=== PATIENT | female | born 1950 | race African-American/Black ===

== ENCOUNTER 2017-04-22 15:24 | Emergency (ER) | payer MEDICARE, MEDICAID ==
[2017-04-22 16:57] LABS: Bilirubin Negative (Negative); Blood, Urine Negative (Negative); Clarity CLEAR (Clear); Glucose, Urine (Dipstick) Negative (Negative); Leukocyte Trace (Negative); Nitrite Negative (Negative); Protein, Urine (Dipstick) Negative (Neg-Trace); Specific Gravity, Urine 1.018 (1.002-1.036)
[2017-04-22 17:01] LABS: Bacteria/HPF 1+ HPF (None Seen); Hyaline Casts/LPF 0-3 HYALINE CAST LPF (0-3 Hyaline); Pathc Cast-AUWi Flag 0.27 (0-2.49); Squamous Epithelial 0-3 HPF (0-3); WBC/HPF 0-3 HPF (0-3)
[2017-04-22 17:14] LABS: RBC/HPF 0-3 HPF (0-3)
[2017-04-22 17:20] LABS: #Basophils 0.1 thou/uL (0.0-0.2); #Eosinphils 0.1 thou/uL (0.0-0.7); #Lymphocytes 2.3 thou/uL (1.20-3.40); #Monocytes 0.5 thou/uL (0.11-0.59); #Neutrophils 3.7 thou/uL (1.40-6.50); %Basophils 0.8 % (0.0-1.0); %Eosinophils 1.4 % (0.0-10.0); %Lymphocytes 34.9 % (21.0-51.0); %Monocytes 7.2 % (0.0-10.0); %Neutrophils 55.7 % (42.0-75.0); Hemoglobin 11.3 g/dL (12.0-16.0); Mean Corpuscular HGB CONC 31.5 g/dL (32.0-36.0); Mean Corpuscular Hemoglobin 28.1 pg (27.0-31.0); Mean Corpuscular Volume 89.4 fl (81.0-99.0); Mean Platelet Volume 8.1 fL (7.4-10.4); Platelet Count 292 thou/uL (130-400); RBC Distribution Width 11.7 % (11.5-14.5); Red Blood Cell (RBC) Count 4.01 mill/uL (4.20-5.40); White Blood Cell (WBC) Count 6.6 thou/uL (4.8-10.8)
[2017-04-22 17:44] LABS: ALT (SGPT) 28 U/L (8-55); AST (SGOT) 28 U/L (5-34); Albumin 4.2 g/dL (3.4-4.8); Alkaline Phosphatase 65 U/L (40-150); Anion Gap 12 mmol/L (10-20); BUN (Urea Nitrogen) 19 mg/dL (9.8-20.1); Bilirubin, Total 0.3 mg/dL (0.2-1.2); CK (CPK) 75 U/L (29-168); CKMB 0.6 ng/mL (0-6.6); CRP (Inflammatory) Less than 0.50 mg/dL (= or < 0.5); Calc. Creatinine Clearance 0 mL/min (70-130); Carbon Dioxide 27 mmol/L (23-31); Chloride 107 mmol/L (98-107); Estimated GFR-MDRD 57; Globulin 3.2 g/dL (2.4-3.5); Glucose 85 mg/dL (80-115); Lipase 31 U/L (8-78); Potassium 4.4 mmol/L (3.5-5.1); Protein, Total 7.4 g/dL (6.0-8.3); Sodium 142 mmol/L (136-145); Troponin I Less than 0.010 ng/mL (< 0.028)
--- NOTE | 2017-04-22 18:21 | CT ---
CT SCAN LUMBAR SPINE: 04/22/17 Multiple axial tomograms obtained through the lumbar spine with multiplanar reconstruction. HISTORY: Back pain. There is mild anterior wedging of the L3, L4 and L5 vertebrae. Prominent anterior osteophytes are see n. There is an old corner fracture from the anterior superior corner of the L4 vertebra with an ununi phillip fragment. This represents an old injury. There is no evidence of spondylolisthesis or spondylolys is. L1-2: There is a mild broad based disc bulge with facet hypertrophy resulting in mild central canal s tenosis. L2-3: Diffuse disc bulge combined with facet hypertrophy results in moderate central canal stenosis. L3-4: Diffuse disc bulge is more prominent. Facet and ligamentous hypertrophy. Moderate to severe urmila tral canal stenosis at this level. L4-5: Very pronounced diffuse disc bulge with bilateral foraminal encroachment combined with facet an d ligamentous hypertrophy results in severe central canal stenosis. L5-S1: Broad based disc bulge is prominent, however, the thecal sac is congenitally smaller. No signi ficant central canal stenosis; however, there is bilateral foraminal stenosis due to diffuse disc bul ge and hypertrophic change. IMPRESSION: Disc bulge at multiple levels with severe central canal stenosis at L4-5 and varying degrees of centr al canal stenosis at the other levels as described. POS: [facility]
== END 2017-04-22 18:13 | disposition home or self-care (01) ==
LOC: ERS 15:24
DX: M51.34 Other intervertebral disc degeneration, thoracic region (principal); R10.9 Unspecified abdominal pain; M54.5 Low back pain; E78.5 Hyperlipidemia, unspecified; I10 Essential (primary) hypertension; F17.210 Nicotine dependence, cigarettes, uncomplicated
CPT/HCPCS: 36415; 72131; 80053; 81003; 81015; 82550; 82553; 83690; 84484; 85025; 86140; 93005; 99406

== ENCOUNTER 2017-12-28 12:06 | Outpatient (CLI) | payer MEDICARE, MEDICAID ==
[2017-12-28 13:16] LABS: #Basophils 0.1 thou/uL (0.0-0.2); #Eosinphils 0.1 thou/uL (0.0-0.7); #Lymphocytes 1.9 thou/uL (1.20-3.40); #Monocytes 0.4 thou/uL (0.11-0.59); %Basophils 1.3 % (0.0-1.0); %Eosinophils 1.6 % (0.0-10.0); %Lymphocytes 35.2 % (21.0-51.0); %Monocytes 7.2 % (0.0-10.0); %Neutrophils 54.8 % (42.0-75.0); Hemoglobin 11.5 g/dL (12.0-16.0); Mean Corpuscular HGB CONC 30.6 g/dL (32.0-36.0); Mean Corpuscular Hemoglobin 26.7 pg (27.0-31.0); Mean Corpuscular Volume 87.3 fL (78.0-98.0); Mean Platelet Volume 8.1 fL (7.4-10.4); Platelet Count 316 thou/uL (130-400); RBC Distribution Width 12.1 % (11.5-14.5); Red Blood Cell (RBC) Count 4.32 mill/uL (4.20-5.40); White Blood Cell (WBC) Count 5.4 thou/uL (4.8-10.8)
[2017-12-28 13:23] LABS: Prothrombin Time 13.4 SEC (12.0-14.7)
[2017-12-28 13:36] LABS: ALT (SGPT) 10 U/L (8-55); AST (SGOT) 14 U/L (5-34); Albumin 4.3 g/dL (3.4-4.8); Alkaline Phosphatase 71 U/L (40-150); Anion Gap 11 mmol/L (10-20); BUN (Urea Nitrogen) 18 mg/dL (9.8-20.1); Bilirubin, Total 0.5 mg/dL (0.2-1.2); Calc. Creatinine Clearance 0 mL/min (70-130); Carbon Dioxide 27 mmol/L (23-31); Chloride 104 mmol/L (98-107); Estimated GFR-MDRD 48; Globulin 3.4 g/dL (2.4-3.5); Glucose 86 mg/dL (80-115); Protein, Total 7.7 g/dL (6.0-8.3); Sodium 138 mmol/L (136-145)
== END 2017-12-28 12:07 | disposition home or self-care (01) ==
LOC: LABBT 12:06
PROVIDERS: ATTEND Internal Medicine Cardiovascular Disease
DX: Z01.812 Encounter for preprocedural laboratory examination (principal); I20.9 Angina pectoris, unspecified
CPT/HCPCS: 80053; 85025; 85610; 85730

== ENCOUNTER 2017-12-29 07:56 | Day surgery (SDC) | payer MEDICARE, MEDICAID ==
[2017-12-28 12:17] VITALS: BMI 25.4
[2017-12-29] MEDS ORDERED: Heparin 10,000 UNITS/1 ML VIAL ONE (08:47)
[2017-12-29] MEDS ORDERED: Nitroglycerin 100MG/250ML BOT 250 ML ONE (08:48)
[2017-12-29] MEDS ORDERED: Lidocaine 1% (PF) 30 ML VIAL ONE (08:48)
[2017-12-29] MEDS ORDERED: Fentanyl 100 MCG/2 ML VIAL ONE (09:07)
[2017-12-29] MEDS ORDERED: Midazolam HCl 2 mg/2 ml Vial ONE (09:08)
[2017-12-29] MEDS ORDERED: Adenosine 6 MG/2 ML VIAL ONE (09:43)
[2017-12-29] MEDS ORDERED: Iopamidol 370 76% 100 ML VIAL ONE (10:24)
[2017-12-29] MEDS ORDERED: Clopidogrel Bisulfate 300 MG TAB ONE (10:55)
--- NOTE | 2017-12-29 15:30 | EKG ---
Test Reason : POST STENTS X2 Blood Pressure : / mmHG Vent. Rate : 068 BPM Atrial Rate : 068 BPM P-R Int : 164 ms QRS Dur : 080 ms QT Int : 410 ms P-R-T Axes : 062 011 014 degrees QTc Int : 435 ms Normal sinus rhythm Normal ECG When compared with ECG of 22-APR-2017 16:51, No significant change was found Confirmed by SUBHASH AGEE, SSil ([id number]) on 12/29/2017 3:30:22 PM Referred By: GODFREY Confirmed By:DR. Toro CULLEN MD
== END 2017-12-29 13:58 | disposition home or self-care (01) ==
LOC: CCL 07:56
PROVIDERS: ATTEND Internal Medicine Cardiovascular Disease
PROC: 027034Z Dilation of Coronary Artery, One Artery with Drug-eluting Intraluminal Device, Percutaneous Approach (ICD-10-PCS; principal; 2017-12-29)
DX: I25.119 Atherosclerotic heart disease of native coronary artery with unspecified angina pectoris (principal); I10 Essential (primary) hypertension; E78.5 Hyperlipidemia, unspecified; F17.290 Nicotine dependence, other tobacco product, uncomplicated; Z79.82 Long term (current) use of aspirin; Z79.02 Long term (current) use of antithrombotics/antiplatelets; Z79.899 Other long term (current) drug therapy; Z95.5 Presence of coronary angioplasty implant and graft
CPT/HCPCS: 85347; 93005; 93798; C1760; C1769 ×2; C1874; C1887; C9600; 92928; 93458; 99152; J0153; J1644; J2001; J2250; J3010

== ENCOUNTER 2017-12-30 09:52 | Emergency (ER) | payer MEDICARE, MEDICAID ==
[2017-12-30 10:44] LABS: #Basophils 0.1 thou/uL (0.0-0.2); #Eosinphils 0.1 thou/uL (0.0-0.7); #Lymphocytes 1.5 thou/uL (1.20-3.40); #Monocytes 0.3 thou/uL (0.11-0.59); #Neutrophils 3.3 thou/uL (1.40-6.50); %Basophils 1.1 % (0.0-1.0); %Eosinophils 1.4 % (0.0-10.0); %Lymphocytes 28.8 % (21.0-51.0); %Monocytes 6.1 % (0.0-10.0); %Neutrophils 62.6 % (42.0-75.0); Hemoglobin 11.3 g/dL (12.0-16.0); Mean Corpuscular HGB CONC 31.8 g/dL (32.0-36.0); Mean Corpuscular Volume 88.2 fL (78.0-98.0); Mean Platelet Volume 8.2 fL (7.4-10.4); Platelet Count 302 thou/uL (130-400); Red Blood Cell (RBC) Count 4.05 mill/uL (4.20-5.40); White Blood Cell (WBC) Count 5.3 thou/uL (4.8-10.8)
[2017-12-30] MEDS ORDERED: ISOVUE-370 76%-LOCM 1 ML ONE (10:44)
[2017-12-30 11:01] LABS: Anion Gap 9 mmol/L (10-20); BUN (Urea Nitrogen) 16 mg/dL (9.8-20.1); Calc. Creatinine Clearance 0 mL/min (70-130); Calcium 9.7 mg/dL (7.8-10.44); Carbon Dioxide 28 mmol/L (23-31); Chloride 109 mmol/L (98-107); Estimated GFR-MDRD 53; Glucose 94 mg/dL (80-115); Potassium 4.6 mmol/L (3.5-5.1); Sodium 141 mmol/L (136-145)
--- NOTE | 2017-12-30 11:29 | ULT ---
RIGHT GROIN ULTRASOUND: History: Post cardiac catheterization pain. Technique: Multiple longitudinal and transverse images of the right inguinal areas obtained using a M ultihertz linear array transducer. FINDINGS: Real-time, color flow, and spectral waveform doppler analysis demonstrates the right common femoral a rtery and vein to be visualized. No evidence of groin aneurysms, pseudoaneurysms, or significant tomi charline seen. IMPRESSION: Normal right groin ultrasound with normal flow seen in the visualized arterial and venous systems. POS: [facility]
--- NOTE | 2017-12-30 12:38 | CT ---
CT RIGHT LOWER EXTREMITY WITH CONTRAST: HISTORY: Right thigh swelling. The patient had surgery. TECHNIQUE: Contrast enhanced CT images of the right lower extremity, proximal, mid, and distal thigh, are obtain ed. IV contrast was given. FINDINGS: Flow is seen in the right common femoral artery, superficial femoral artery, and right popliteal valentina ry. Normal flow is seen in the right profunda femoris. Contrast is seen in the right common femoral vein and superficial femoral vein. Post procedure edema is seen in the right inguinal crease. No evidence of abscess is seen. A calcified uterine fibroid is seen. IMPRESSION: Normal CT, right thigh. POS: [facility]
== END 2017-12-30 12:34 | disposition home or self-care (01) ==
LOC: ERS 09:52
DX: M79.81 Nontraumatic hematoma of soft tissue (principal); E78.5 Hyperlipidemia, unspecified; I10 Essential (primary) hypertension; F17.200 Nicotine dependence, unspecified, uncomplicated
CPT/HCPCS: 36415; 80048; 85025; 93976

== ENCOUNTER 2018-01-05 12:19 | Inpatient (IN) | payer MEDICARE, MEDICAID ==
[2018-01-05 12:43] LABS: #Eosinphils 0.1 thou/uL (0.0-0.7); #Monocytes 0.3 thou/uL (0.11-0.59); #Neutrophils 3.6 thou/uL (1.40-6.50); %Basophils 0.8 % (0.0-1.0); %Eosinophils 1.7 % (0.0-10.0); %Lymphocytes 32.9 % (21.0-51.0); %Monocytes 5.7 % (0.0-10.0); Hemoglobin 11.2 g/dL (12.0-16.0); Mean Corpuscular HGB CONC 32.4 g/dL (32.0-36.0); Mean Corpuscular Hemoglobin 28.3 pg (27.0-31.0); Mean Corpuscular Volume 87.3 fL (78.0-98.0); Mean Platelet Volume 8.2 fL (7.4-10.4); Platelet Count 345 thou/uL (130-400); RBC Distribution Width 12.2 % (11.5-14.5); Red Blood Cell (RBC) Count 3.97 mill/uL (4.20-5.40); White Blood Cell (WBC) Count 6.1 thou/uL (4.8-10.8)
[2018-01-05 13:10] LABS: ALT (SGPT) 11 U/L (8-55); AST (SGOT) 13 U/L (5-34); Albumin 4.1 g/dL (3.4-4.8); Alkaline Phosphatase 64 U/L (40-150); Anion Gap 12 mmol/L (10-20); BUN (Urea Nitrogen) 28 mg/dL (9.8-20.1); Bilirubin, Total 0.4 mg/dL (0.2-1.2); CK (CPK) 50 U/L (29-168); Calc. Creatinine Clearance 0 mL/min (70-130); Carbon Dioxide 26 mmol/L (23-31); Chloride 104 mmol/L (98-107); Estimated GFR-MDRD 33; Globulin 3.2 g/dL (2.4-3.5); Glucose 115 mg/dL (80-115); Lipase 20 U/L (8-78); Potassium 3.8 mmol/L (3.5-5.1); Protein, Total 7.3 g/dL (6.0-8.3); Sodium 138 mmol/L (136-145)
[2018-01-05 13:14] LABS: CKMB 0.7 ng/mL (0-6.6); Troponin I Less than 0.010 ng/mL (< 0.028)
--- NOTE | 2018-01-05 13:18 | RAD ---
FRONTAL VIEW CHEST: Date: 01/05/18 COMPARISON: 03/29/16. INDICATION: Chest pain. FINDINGS: There is no evidence of consolidation, effusion, or pneumothorax. The cardiac silhouette is accentuat ed by portable technique. IMPRESSION: No focal consolidation. POS: [facility]
[2018-01-05] MEDS ORDERED: Enoxaparin Sodium 60 MG/0.6 ML SYRINGE ONE (15:02)
[2018-01-05] MEDS ORDERED: Acetaminophen 325 MG TAB PO PRN (15:35)
[2018-01-05] MEDS ORDERED: Acetaminophen 650 MG Suppository PR PRN (15:35)
[2018-01-05] MEDS ORDERED: Bisacodyl 5 MG TAB PO PRN (15:35)
[2018-01-05] MEDS ORDERED: Enoxaparin Sodium 40 MG/0.4 ML SYRINGE SC SCH (15:45)
[2018-01-05 16:23] LABS: Troponin I Less than 0.010 ng/mL (< 0.028)
[2018-01-05 19:06] LABS: Troponin I Less than 0.010 ng/mL (< 0.028)
[2018-01-05] MEDS ORDERED: Sodium Chloride 0.9% 1,000 ML IV SCH (19:30)
--- NOTE | 2018-01-05 19:35 | HP ---
DATE OF ADMISSION: 01/05/2018 PRIMARY CARE PROVIDER: Sam Farfan M.D. CHIEF COMPLAINT: Chest pain. HISTORY OF PRESENT ILLNESS: Ms. Leung is a pleasant 67-year-old lady who was seen at [facility] on 01/05/2018. She underwent cardiac catheterization and PCI with stents on 12/29/2017. She reports that she was do ing well until 2 days ago. At that time, she started having retrosternal chest discomfort. She desc ribes it as sharp, on and off, accompanied by nausea and diaphoresis, worse with lying down, no known aggravating or relieving factors and radiating down left arm. She reports that the pain was constan t last night. She therefore came to the emergency room. REVIEW OF SYSTEMS: All other systems reviewed and found to be negative. PAST MEDICAL HISTORY: Coronary artery disease, dyslipidemia, arthritis, hypertension. PAST SURGICAL HISTORY: Cholecystectomy, tubal ligation, PCI with coronary stents. SOCIAL HISTORY: The patient is an ex-smoker. She denies alcohol use or recreational drug use. FAMILY HISTORY: She reports that several family members have heart disease. ALLERGIES: No known drug allergies. CURRENT MEDICATIONS: Aspirin 81 mg daily, Dexilant 60 mg daily, isosorbide mononitrate 30 mg daily, Crestor 20 mg daily, bupropion 150 mg 2 times daily, lisinopril/hydrochlorothiazide 10/12.5 mg daily, Plavix 75 mg daily and Ranexa 500 mg daily. CODE STATUS: I discussed her code status. She is full code. PHYSICAL EXAMINATION: GENERAL: Ms. Leung is awake and alert, not in acute distress. VITAL SIGNS: Blood pressure is 109/67, pulse 69, respiratory rate 17 and oxygen saturation 98% on ro om air. She is afebrile. She is obese, with a BMI of 30.5. EYES: No scleral icterus. No conjunctival pallor. ENT: Moist mucosal membranes. No oropharyngeal erythema or exudates. NECK: Supple, nontender, trachea is midline. RESPIRATORY: Accessory muscles of breathing are not active. Chest wall movements are symmetric bila terally. LUNGS: Clear to auscultation without wheeze, rhonchi or crepitations. CARDIOVASCULAR: S1 and S2 are heard, regular. Peripheral pulses palpable. No carotid bruit. No pe ricardial rub. ABDOMEN: Soft, nontender, bowel sounds are heard, no hepatomegaly, no splenomegaly. NEUROLOGIC: Cranial nerves II-XII intact. Deep tendon reflexes are 2+. MUSCULOSKELETAL: Power is 5/5 in all 4 extremities. SKIN: No rashes or subcutaneous nodules. LYMPHATIC: No cervical lymphadenopathy. PSYCHIATRIC: Normal mood, normal affect. The patient is oriented to person, place and time. LABORATORY DATA: Ms. Leung's labs and investigations were reviewed. I reviewed her electrocardiogr am, which shows normal sinus rhythm, no ST changes to suggest an acute coronary syndrome. I also rev iewed her chest x-ray, which does not show any pulmonary infiltrates. She has normocytic anemia with hemoglobin 11.2, normal white count, normal platelet count, troponin I negative x2, normal sodium, n ormal potassium, elevated blood urea nitrogen of 28, elevated creatinine of 1.85, last known creatini ne 1.24 on 12/30/2017, normal liver profile and normal lipase. ASSESSMENT AND PLAN: Ms. Leung is a pleasant 67-year-old lady who was seen at [facility] on 01/05/2018. Her problem list includes: 1. Chest pain: Etiology unclear at this time, but she does have known coronary artery disease and r ecent PCI with stents. She will be admitted to the hospital for monitoring on telemetry. Cardiology service will be consulted for opinion and help with management. 2. Acute on chronic renal insufficiency: The patient is presenting with acute on chronic stage 3 re nal insufficiency. This is most likely prerenal given the elevated blood urea nitrogen, although oth er possibilities including contrast induced nephrotoxicity are still possible. We will provide her w ith intravenous fluids and recheck her creatinine. 3. Hypertension: We will resume the patient's home medications, monitor vital signs and titrate ant ihypertensives as needed. 4. Dyslipidemia: We will continue statin. Many thanks for allowing me to participate in your patient's care. Please feel free to contact me wi th any questions or concerns. LEVEL OF RISK: High. LEVEL OF COMPLEXITY: High.
[2018-01-05] MEDS ORDERED: Sodium Chloride 0.9% 500 ML IV SCH (19:45)
[2018-01-05] MEDS: ALPRAZolam 0.25 MG TAB PO SCH (20:19)
[2018-01-05] MEDS: Rosuvastatin 20 MG TAB PO SCH (20:19)
[2018-01-05] MEDS: Bupropion 150 MG SR TAB PO SCH (20:19)
[2018-01-05] MEDS: Sodium Chloride 0.9% 1,000 ML IV SCH (20:23)
[2018-01-05] MEDS ORDERED: Enoxaparin Sodium 80 MG/0.8 ML SYRINGE SC SCH (21:00)
[2018-01-06 05:37] LABS: #Eosinphils 0.1 thou/uL (0.0-0.7); #Lymphocytes 2.2 thou/uL (1.20-3.40); #Monocytes 0.4 thou/uL (0.11-0.59); #Neutrophils 2.4 thou/uL (1.40-6.50); %Basophils 0.8 % (0.0-1.0); %Eosinophils 2.9 % (0.0-10.0); %Lymphocytes 42.9 % (21.0-51.0); %Monocytes 7.3 % (0.0-10.0); %Neutrophils 46.1 % (42.0-75.0); Hemoglobin 10.5 g/dL (12.0-16.0); Mean Corpuscular HGB CONC 31.8 g/dL (32.0-36.0); Mean Corpuscular Hemoglobin 28.3 pg (27.0-31.0); Mean Corpuscular Volume 89.1 fL (78.0-98.0); Mean Platelet Volume 8.4 fL (7.4-10.4); Platelet Count 286 thou/uL (130-400); RBC Distribution Width 12.3 % (11.5-14.5); Red Blood Cell (RBC) Count 3.71 mill/uL (4.20-5.40); White Blood Cell (WBC) Count 5.2 thou/uL (4.8-10.8)
[2018-01-06 05:39] LABS: Anion Gap 10 mmol/L (10-20); BUN (Urea Nitrogen) 20 mg/dL (9.8-20.1); Calc. Creatinine Clearance 53 mL/min (70-130); Calcium 9.1 mg/dL (7.8-10.44); Carbon Dioxide 25 mmol/L (23-31); Chloride 111 mmol/L (98-107); Estimated GFR-MDRD 57; Glucose 106 mg/dL (80-115); Potassium 3.8 mmol/L (3.5-5.1); Sodium 142 mmol/L (136-145)
[2018-01-06] MEDS ORDERED: Lisinopril/Hydrochlorothiazide 10 mg/12.5 mg Tablet PO SCH (09:00)
[2018-01-06] MEDS ORDERED: Aspirin 81 mg Enteric Coated Tablet PO SCH (09:00)
[2018-01-06] MEDS: ALPRAZolam 0.25 MG TAB PO SCH ×3 (09:13→21:02)
[2018-01-06] MEDS: Bupropion 150 MG SR TAB PO SCH ×2 (09:13→21:02)
[2018-01-06] MEDS: Clopidogrel Bisulfate 75 MG TAB PO SCH (09:13)
[2018-01-06] MEDS: Sodium Chloride 0.9% 1,000 ML IV SCH (10:14)
[2018-01-06] MEDS: Aspirin 81 mg Enteric Coated Tablet PO SCH (10:16)
[2018-01-06 14:37] VITALS: BMI 30.4
--- NOTE | 2018-01-06 14:57 | PDOC.PN ---
- Subjective Encounter Start Date: 01/06/18 Encounter Start Time: 09:20 Pt seen for followup re: chest pain. Reports chest pain is better. No fevers or chills. - Objective Resuscitation Status: Resuscitation Status FULL:Full Resuscitation MAR Reviewed: Yes Vital Signs & Weight: Vital Signs (12 hours) Temp Pulse Resp BP Pulse Ox 01/06/18 11:54 98.2 F 75 16 114/61 95 01/06/18 07:23 98 F 66 16 111/58 L 97 01/06/18 03:58 98.0 F 73 19 116/59 L 96 Weight Admit Weight 151 lb Weight 151 lb I&O: 01/05/18 01/06/18 01/07/18 06:59 06:59 06:59 Intake Total 1775 Output Total 1450 Balance 325 Result Diagrams: 01/06/18 04:44 01/06/18 04:44 EKG Reviewed by me: Yes (Tele: NSR) Phys Exam - Physical Examination Obese HEENT: moist MMs, sclera anicteric, oral pharynx no lesions, 2+ tonsils Neck: no nodes, no JVD, supple, full ROM Respiratory: no wheezing, no rales, no rhonchi, clear to auscultation bilateral Cardiovascular: RRR, no rub S1, S2 Gastrointestinal: soft, non-tender, no distention, positive bowel sounds Neurological: moves all 4 limbs Psychiatric: normal affect, A&O x 3 Dx/Plan (1) Chest pain Code(s): R07.9 - CHEST PAIN, UNSPECIFIED Status: Acute Comment: etiology unclear, pt has known CAD. Continue Lovenox, Plavix and aspirin. (2) Acute on chronic renal failure Code(s): N17.9 - ACUTE KIDNEY FAILURE, UNSPECIFIED; N18.9 - CHRONIC KIDNEY DISEASE, UNSPECIFIED Status: Acute Comment: Improved with IV fluids (3) Normocytic anemia Code(s): D64.9 - ANEMIA, UNSPECIFIED Status: Chronic Comment: stable (4) HTN (hypertension) Code(s): I10 - ESSENTIAL (PRIMARY) HYPERTENSION Status: Chronic Comment: controlled (5) Dyslipidemia Code(s): E78.5 - HYPERLIPIDEMIA, UNSPECIFIED Status: Chronic Comment: continue statin - Plan * . Review of Systems - Review of Systems Constitutional: negative: fever, chills, sweats, weakness, malaise Respiratory: negative: Cough, Shortness of Breath, SOB with Excertion, Pleuritic Pain, Wheezing Cardiovascular: chest pain. negative: palpitations, orthopnea, paroxysmal nocturnal dyspnea, edema, light headedness Gastrointestinal: negative: Nausea, Vomiting, Abdominal Pain, Diarrhea, Constipation, Melena, Hematochezia Genitourinary: negative: Dysuria, Frequency, Incontinence, Hematuria, Retention Skin: negative: Rash, Lesions, Dioni, Bruising - Medications/Allergies Allergies/Adverse Reactions: Allergies Allergy/AdvReac Type Severity Reaction Status Date / Time No Known Allergies Allergy Verified 01/05/18 21:10 Medications: Current Medications Acetaminophen (Tylenol) 650 mg PO Q4H PRN PRN Reason: Headache/Fever/Mild Pain (1-3) Acetaminophen (Tylenol) 650 mg SC Q4H PRN PRN Reason: Headache/Fever/Mild Pain (1-3) Alprazolam (Xanax) 0.25 mg PO TID [facility] Last Admin: 01/06/18 09:13 Dose: 0.25 mg Aspirin (Ecotrin) 81 mg PO DAILY [facility] Last Admin: 01/06/18 10:16 Dose: 81 mg Bisacodyl (Dulcolax) 10 mg PO DAILYPRN PRN PRN Reason: Constipation Bupropion HCl (Wellbutrin Sr) 150 mg PO BID [facility] Last Admin: 01/06/18 09:13 Dose: 150 mg Clopidogrel Bisulfate (Plavix) 75 mg PO DAILY [facility] Last Admin: 01/06/18 09:13 Dose: 75 mg Enoxaparin Sodium (Lovenox) 40 mg SC 2100 [facility] Isosorbide Mononitrate (Imdur Er) 30 mg PO DAILY [facility] Last Admin: 01/06/18 09:13 Dose: 30 mg Pantoprazole Sodium (Protonix) 40 mg PO DAILY [facility] Last Admin: 01/06/18 09:13 Dose: 40 mg Ranolazine (Ranexa) 500 mg PO BID [facility] Last Admin: 01/06/18 09:13 Dose: 500 mg Rosuvastatin Calcium (Crestor) 20 mg PO HS [facility] Last Admin: 01/05/18 20:19 Dose: 20 mg
--- NOTE | 2018-01-06 16:42 | CON ---
DATE OF CONSULT: 01/05/18 HISTORY OF PRESENT ILLNESS: The patient is a 67-year-old woman who presents with recurrent chest discomfort. The patient has a long history of coronary artery disease. She had previously undergone PTCA and stent placement into the right coronary artery in 2017. The patient had several stents placed into this vessel. The patient presented with recurrent chest discomfort. Approximately a month ago, she underwent repeat catheterization and found to have restenosis in her right coronary artery. The patient subsequently underwent PTCA and stent placement into this vessel six days ago. The patient states she has subsequently continued to have persistent left-sided chest discomfort that started two days ago. She states the pain radiates down her left arm. The patient states it was severe. It seems to be worse when she lies down. The patient denies having any PND or orthopnea. PAST MEDICAL HISTORY: 1. Coronary artery disease. 2. Hypertension. 3. Dyslipidemia. PAST SURGICAL HISTORY: Tubal ligation, and cholecystectomy. ALLERGIES: No known drug allergies. MEDICATIONS ON ADMISSION: Plavix 75 daily, aspirin 81 daily, Imdur 30 q.a.m., Ranexa 500 b.i.d., lisinopril/hydrochlorothiazide 10/.5 and a nicotine patch, Wellbutrin 150 mg p.o. b.i.d. Crestor 20 q. h.s. SOCIAL HISTORY: Former smoker. REVIEW OF SYSTEMS: Ten point system noticeable for increased anxiety. PHYSICAL EXAMINATION: GENERAL: This is a well-developed woman in no acute distress with a blood pressure of 94/52. NECK: Showed no jugular venous distention. . LUNGS: Clear to auscultation. HEART: Regular rate and rhythm, normal S1, S2, no murmurs. ABDOMEN: Nondistended. EXTREMITIES: No edema. SKIN: Warm and dry. NEUROLOGIC: Nonfocal. VASCULAR: Radial pulses are 2+. LABORATORY RESULTS: Sodium 130, potassium 3.8 104, bicarb 26, BUN 20, creatinine 1.85, troponin less than 0.01. White blood cell count 6.1, hemoglobin 11.2, hematocrit 34.7, platelets are 345. EKG revealed abnormal sinus rhythm, normal ECG. IMPRESSION: 1. Chest pain, probably noncardiac. 2. History of recent PTCA and stent placement. 3. Hypertension. 4. Dyslipidemia. 5. History of tobacco abuse. This patient presents with recurrent chest discomfort. The patient states she has been under a great deal of stress. Her cardiac enzymes reveal no evidence of myocardial infarction. Her EKG with severe pain shows no evidence of ischemia . At this time, we will start the patient on Xanax. We will rehydrate. Her creatinine has become elevated since her last procedure. We will follow this patient with you through her hospitalization. ANGY
[2018-01-06] MEDS ORDERED: Enoxaparin Sodium 40 MG/0.4 ML SYRINGE SC SCH (21:00)
[2018-01-06] MEDS: Rosuvastatin 20 MG TAB PO SCH (21:02)
[2018-01-07 05:40] LABS: #Eosinphils 0.2 thou/uL (0.0-0.7); #Lymphocytes 1.6 thou/uL (1.20-3.40); #Monocytes 0.3 thou/uL (0.11-0.59); #Neutrophils 3.8 thou/uL (1.40-6.50); %Basophils 0.3 % (0.0-1.0); %Eosinophils 2.6 % (0.0-10.0); %Lymphocytes 27.4 % (21.0-51.0); %Monocytes 5.1 % (0.0-10.0); %Neutrophils 64.6 % (42.0-75.0); Hemoglobin 10.2 g/dL (12.0-16.0); Mean Corpuscular HGB CONC 30.7 g/dL (32.0-36.0); Mean Corpuscular Hemoglobin 27.5 pg (27.0-31.0); Mean Corpuscular Volume 89.5 fL (78.0-98.0); Mean Platelet Volume 7.9 fL (7.4-10.4); Platelet Count 303 thou/uL (130-400); RBC Distribution Width 12.3 % (11.5-14.5); White Blood Cell (WBC) Count 5.8 thou/uL (4.8-10.8)
[2018-01-07 05:52] LABS: Anion Gap 11 mmol/L (10-20); BUN (Urea Nitrogen) 15 mg/dL (9.8-20.1); Calc. Creatinine Clearance 59 mL/min (70-130); Calcium 9.5 mg/dL (7.8-10.44); Carbon Dioxide 22 mmol/L (23-31); Chloride 111 mmol/L (98-107); Estimated GFR-MDRD 65; Glucose 90 mg/dL (80-115); Potassium 4.2 mmol/L (3.5-5.1); Sodium 140 mmol/L (136-145)
[2018-01-07] MEDS: Bupropion 150 MG SR TAB PO SCH (09:00)
[2018-01-07] MEDS: ALPRAZolam 0.25 MG TAB PO SCH (09:00)
[2018-01-07] MEDS: Clopidogrel Bisulfate 75 MG TAB PO SCH (09:00)
[2018-01-07] MEDS: Aspirin 81 mg Enteric Coated Tablet PO SCH (09:00)
[2018-01-07 11:12] VITALS: BP 119/57; TEMP 99
--- NOTE | 2018-01-07 19:29 | DIS ---
DATE OF ADMISSION: 01/05/2018 DATE OF DISCHARGE: 01/07/2018 PRIMARY CARE PROVIDER: Sam Farfan M.D. DISCHARGE DIAGNOSES: 1. Chest pain. 2. Chest pain, likely secondary to stress. 3. Acute renal insufficiency. CONDITION OF PATIENT ON THE DAY OF DISCHARGE: Stable. I assessed Ms. Leung on the day of discharge . She denies any chest pain or shortness of breath. Vital signs are stable. S1 and S2 are heard, r egular. Lungs are clear to auscultation bilaterally. CONSULTATIONS DURING THIS HOSPITALIZATION: Cardiology, Frandy Lau M.D. DISCHARGE MEDICATIONS: Lisinopril/hydrochlorothiazide has been discontinued, Xanax has been started at 0.5 mg 3 times a day with a prescription for 10 doses. Otherwise, no change was made to her [facility]ad [facility] medications as dictated on my history and physical note dated 01/05/2018. HOSPITAL COURSE: Ms. Leung is a pleasant 67-year-old lady who was admitted to [facility] on 01/05/2018 for chest pain. She had normal troponins. She was seen by Cardiology Ser vice. She has been started on Xanax for management of stress. She will likely need to be transition ed to other medications or other modalities for stress management through her primary care provider's office. She has an appointment with her primary care provider tomorrow and I advised her to discuss with primary care provider. On the day of discharge, she has white count 5800, hemoglobin 10.2, platelet count 303,000. Sodium 1 40, potassium 4.2 and creatinine 1.03. The patient also had acute kidney injury at the time of admission, with a creatinine of 1.85 and bloo d urea nitrogen of 28. She received intravenous fluids with improvement of her creatinine and blood urea nitrogen. Lisinopril/hydrochlorothiazide has been discontinued during this hospitalization. Many thanks for allowing me to participate in your patient's care. Please feel free to contact me wi th any questions or concerns. DISCHARGE DESTINATION: Home. TOTAL AMOUNT OF TIME SPENT COORDINATING THIS DISCHARGE: 32 minutes.
--- NOTE | 2018-01-09 18:39 | PQF ---
SORAIDA DIAZ NETO MCKEON [id number] [facility]-261 [id number] CLINICAL DOCUMENTATION CLARIFICATION FORM: POST DISCHARGE Addendum to original discharge summary date: ____ Late entry note date: __ DATE: 01/09/18 ATTN: Please exercise your independent, professional judgment in responding to the clarification form. Clinical indicators are provided on the bottom of this form for your review Please check appropriate box(s): [ ] Acute stress reaction [ ] Mental Stress [ ] Other diagnosis [ ] Unable to determine In addition, please specify: Present on Admission (POA): [ ] Yes [ ] No [ ] Unable to determine For continuity of documentation, please document condition throughout progress notes and discharge summary. Thank You. CLINICAL INDICATORS - SIGNS / SYMPTOMS / LABS Chest pain - noted to be stress related RISK FACTORS Acute Kidney Injury TREATMENTS: Xanax (This form is maintained as a part of the permanent medical record) 2014 [employer] All Rights Reserved Dave [email or web address] [phone] MTDD
== END 2018-01-07 13:27 | disposition home or self-care (01) | DRG 951 ==
LOC: ERS 12:19 → 2NO 17:28
PROVIDERS: ADMIT Internal Medicine; ATTEND Internal Medicine
DX: Z73.3 Stress, not elsewhere classified (principal); N17.9 Acute kidney failure, unspecified; I25.10 Atherosclerotic heart disease of native coronary artery without angina pectoris; Z95.5 Presence of coronary angioplasty implant and graft; E78.5 Hyperlipidemia, unspecified; Z79.02 Long term (current) use of antithrombotics/antiplatelets; Z79.899 Other long term (current) drug therapy; Z79.82 Long term (current) use of aspirin; Z87.891 Personal history of nicotine dependence; N18.9 Chronic kidney disease, unspecified; I12.9 Hypertensive chronic kidney disease with stage 1 through stage 4 chronic kidney disease, or unspecified chronic kidney disease
CPT/HCPCS: 36415; 71045; 80048; 80053; 82553; 83690; 84484; 85025; 90471; 90662; 93005; 96360; 96372; G0008; J1650

== ENCOUNTER 2018-05-09 10:04 | Outpatient (CLI) | payer MEDICARE, MEDICAID ==
--- NOTE | 2018-05-09 11:42 | RAD ---
PA AND LATERAL CHEST: Date: 05/09/18 HISTORY: Cough. COMPARISON: 06/10/13. FINDINGS: Heart size is upper limits of normal. Mediastinal structures are unremarkable. Lungs are clear of inf iltrates. IMPRESSION: Borderline heart size. POS: [facility]
== END 2018-05-09 10:05 | disposition home or self-care (01) ==
LOC: BICRAD 10:04
PROVIDERS: ATTEND Family Medicine
DX: R05 Cough (principal); R06.00 Dyspnea, unspecified
CPT/HCPCS: 71046

== ENCOUNTER 2018-05-09 10:28 | Emergency (ER) | payer MEDICARE, MEDICAID ==
[2018-05-09 11:03] LABS: #Basophils 0.1 thou/uL (0.0-0.2); #Eosinphils 0.1 thou/uL (0.0-0.7); #Lymphocytes 2.2 thou/uL (1.20-3.40); #Monocytes 0.3 thou/uL (0.11-0.59); #Neutrophils 5.2 thou/uL (1.40-6.50); %Basophils 1.1 % (0.0-1.0); %Eosinophils 1.8 % (0.0-10.0); %Lymphocytes 27.8 % (21.0-51.0); %Monocytes 4.3 % (0.0-10.0); Hemoglobin 12.2 g/dL (12.0-16.0); Mean Corpuscular HGB CONC 32.1 g/dL (32.0-36.0); Mean Corpuscular Hemoglobin 28.7 pg (27.0-31.0); Mean Corpuscular Volume 89.4 fL (78.0-98.0); Mean Platelet Volume 8.7 fL (7.4-10.4); Platelet Count 273 thou/uL (130-400); RBC Distribution Width 12.4 % (11.5-14.5); Red Blood Cell (RBC) Count 4.27 mill/uL (4.20-5.40); White Blood Cell (WBC) Count 7.9 thou/uL (4.8-10.8)
[2018-05-09 11:33] LABS: ALT (SGPT) 12 U/L (8-55); AST (SGOT) 19 U/L (5-34); Albumin 3.9 g/dL (3.4-4.8); Alkaline Phosphatase 71 U/L (40-150); Anion Gap 11 mmol/L (10-20); BUN (Urea Nitrogen) 16 mg/dL (9.8-20.1); Bilirubin, Total 0.4 mg/dL (0.2-1.2); Calc. Creatinine Clearance 0 mL/min (70-130); Calcium 9.4 mg/dL (7.8-10.44); Carbon Dioxide 26 mmol/L (23-31); Chloride 110 mmol/L (98-107); Estimated GFR-MDRD 64; Globulin 2.9 g/dL (2.4-3.5); Glucose 92 mg/dL (80-115); Potassium 4.3 mmol/L (3.5-5.1); Protein, Total 6.8 g/dL (6.0-8.3); Sodium 143 mmol/L (136-145)
--- NOTE | 2018-05-12 18:16 | EKG ---
Test Reason : Blood Pressure : / mmHG Vent. Rate : 064 BPM Atrial Rate : 064 BPM P-R Int : 142 ms QRS Dur : 068 ms QT Int : 408 ms P-R-T Axes : 064 005 012 degrees QTc Int : 420 ms Normal sinus rhythm Normal ECG Confirmed by MEHNAZ AGEE, LINDA ([id number]), non linear editor MAIKOL GALLAGHER ([id number]) on 05/12/2018 6:16:27 PM Referred By: Confirmed By:LINDA DARBY MD
== END 2018-05-09 12:38 | disposition home or self-care (01) ==
LOC: ERS 10:28
DX: R07.89 Other chest pain (principal); M19.90 Unspecified osteoarthritis, unspecified site; I10 Essential (primary) hypertension; Z87.891 Personal history of nicotine dependence; Z79.899 Other long term (current) drug therapy; Z79.82 Long term (current) use of aspirin
CPT/HCPCS: 71046; 80053; 84484; 85025; 93005

== ENCOUNTER 2018-05-11 06:48 | Outpatient (CLI) | payer MEDICARE, MEDICAID ==
--- NOTE | 2018-05-11 09:02 | ULT ---
COMPLETE ABDOMINAL ULTRASOUND: Date: 05/11/18 COMPARISON: 03/17/18. HISTORY: Abdominal distention for 2 months. TECHNIQUE: Multiplanar Mclean scale and color Doppler images were obtained in a complete abdominal ultrasound. FINDINGS: The liver is normal in echogenicity without focal lesions or intrahepatic ductal dilatation. The gall bladder has been removed. The common bile duct is normal, measuring 3.0 mm. The aorta is not well visualized. The inferior vena cava is normal in caliber. The pancreas is not we ll visualized. The spleen is normal in echogenicity without focal lesions and measures 6.7 cm in stuart th. Both kidneys are normal in echogenicity without hydronephrosis or calculi and measure 9.5 and 10.1 cm in length on the right and left, respectively. IMPRESSION: Status post cholecystectomy without acute abnormality. POS: [facility]
== END 2018-05-11 06:49 | disposition home or self-care (01) ==
LOC: BICULT 06:48
PROVIDERS: ATTEND Nurse Practitioner Family
DX: E87.70 Fluid overload, unspecified (principal); R10.9 Unspecified abdominal pain; Z90.49 Acquired absence of other specified parts of digestive tract
CPT/HCPCS: 76700

== ENCOUNTER 2018-05-25 15:03 | Emergency (ER) | payer MEDICARE, MEDICAID ==
[2018-05-25 15:44] LABS: #Basophils 0.1 thou/uL (0.0-0.2); #Eosinphils 0.2 thou/uL (0.0-0.7); #Lymphocytes 2.4 thou/uL (1.20-3.40); #Monocytes 0.4 thou/uL (0.11-0.59); #Neutrophils 3.7 thou/uL (1.40-6.50); %Basophils 1.1 % (0.0-1.0); %Eosinophils 2.9 % (0.0-10.0); %Lymphocytes 35.8 % (21.0-51.0); %Monocytes 6.2 % (0.0-10.0); Hemoglobin 13.2 g/dL (12.0-16.0); Mean Corpuscular HGB CONC 31.7 g/dL (32.0-36.0); Mean Corpuscular Hemoglobin 28.5 pg (27.0-31.0); Mean Corpuscular Volume 89.9 fL (78.0-98.0); Mean Platelet Volume 8.1 fL (7.4-10.4); Platelet Count 290 thou/uL (130-400); RBC Distribution Width 12.1 % (11.5-14.5); Red Blood Cell (RBC) Count 4.64 mill/uL (4.20-5.40); White Blood Cell (WBC) Count 6.8 thou/uL (4.8-10.8)
--- NOTE | 2018-05-25 16:08 | RAD ---
TWO VIEW CHEST: 05/25/18 COMPARISON: 05/09/18. INDICATION: Cough for one week. FINDINGS: There is no lobar consolidation, effusion or pneumothorax. Cardiac silhouette is stable. IMPRESSION: Stable chest. POS: [facility]
[2018-05-25 16:09] LABS: ALT (SGPT) 10 U/L (8-55); AST (SGOT) 14 U/L (5-34); Albumin 4.2 g/dL (3.4-4.8); Alkaline Phosphatase 74 U/L (40-150); Anion Gap 15 mmol/L (10-20); BUN (Urea Nitrogen) 18 mg/dL (9.8-20.1); Bilirubin, Total 0.6 mg/dL (0.2-1.2); CK (CPK) 42 U/L (29-168); Calc. Creatinine Clearance 0 mL/min (70-130); Calcium 10.2 mg/dL (7.8-10.44); Carbon Dioxide 25 mmol/L (23-31); Chloride 106 mmol/L (98-107); Estimated GFR-MDRD 52; Globulin 3.3 g/dL (2.4-3.5); Glucose 93 mg/dL (80-115); Potassium 4.7 mmol/L (3.5-5.1); Protein, Total 7.5 g/dL (6.0-8.3); Sodium 141 mmol/L (136-145)
[2018-05-25] MEDS ORDERED: Acetaminophen 500 MG TAB ONE (17:16)
== END 2018-05-25 17:33 | disposition home or self-care (01) ==
LOC: ERS 15:03
DX: M25.512 Pain in left shoulder (principal); R05 Cough; E78.5 Hyperlipidemia, unspecified; I10 Essential (primary) hypertension; Z87.891 Personal history of nicotine dependence; Z79.82 Long term (current) use of aspirin; Z79.899 Other long term (current) drug therapy
CPT/HCPCS: 36415; 71046; 80053; 82550; 84484; 85025; 93005

== ENCOUNTER 2018-06-14 06:32 | Outpatient (CLI) | payer MEDICARE, MEDICAID ==
[2018-06-14 12:19] LABS: #Eosinphils 0.2 thou/uL (0.0-0.7); #Lymphocytes 1.7 thou/uL (1.20-3.40); #Monocytes 0.4 thou/uL (0.11-0.59); #Neutrophils 2.7 thou/uL (1.40-6.50); %Basophils 0.2 % (0.0-1.0); %Eosinophils 4.6 % (0.0-10.0); %Lymphocytes 34.2 % (21.0-51.0); %Monocytes 7.2 % (0.0-10.0); %Neutrophils 53.8 % (42.0-75.0); Hemoglobin 11.3 g/dL (12.0-16.0); Mean Corpuscular HGB CONC 31.2 g/dL (32.0-36.0); Mean Corpuscular Hemoglobin 27.7 pg (27.0-31.0); Mean Corpuscular Volume 88.9 fL (78.0-98.0); Mean Platelet Volume 8.6 fL (7.4-10.4); Platelet Count 256 thou/uL (130-400); RBC Distribution Width 12.3 % (11.5-14.5); Red Blood Cell (RBC) Count 4.09 mill/uL (4.20-5.40)
[2018-06-14 12:25] LABS: Prothrombin Time 12.9 SEC (12.0-14.7)
[2018-06-14 12:41] LABS: ALT (SGPT) 13 U/L (8-55); AST (SGOT) 15 U/L (5-34); Albumin 3.8 g/dL (3.4-4.8); Alkaline Phosphatase 72 U/L (40-150); Anion Gap 11 mmol/L (10-20); BUN (Urea Nitrogen) 12 mg/dL (9.8-20.1); Bilirubin, Total 0.3 mg/dL (0.2-1.2); Calc. Creatinine Clearance 0 mL/min (70-130); Calcium 9.3 mg/dL (7.8-10.44); Carbon Dioxide 28 mmol/L (23-31); Chloride 110 mmol/L (98-107); Estimated GFR-MDRD 60; Globulin 2.6 g/dL (2.4-3.5); Glucose 113 mg/dL (80-115); Potassium 4.1 mmol/L (3.5-5.1); Protein, Total 6.4 g/dL (6.0-8.3); Sodium 145 mmol/L (136-145)
== END 2018-06-14 06:33 | disposition home or self-care (01) ==
LOC: LABBT 06:32
PROVIDERS: ATTEND Internal Medicine Cardiovascular Disease
DX: Z01.812 Encounter for preprocedural laboratory examination (principal); R07.89 Other chest pain
CPT/HCPCS: 80053; 85025; 85610; 85730

== ENCOUNTER 2018-06-22 07:38 | Day surgery (SDC) | payer MEDICARE, MEDICAID ==
[2018-06-14 12:16] VITALS: BMI 33.7
[2018-06-22 08:49] LABS: Cardiac Risk 3.1 (Less than 4.5)
[2018-06-22] MEDS ORDERED: Midazolam HCl 2 mg/2 ml Vial ONE (08:55)
[2018-06-22] MEDS ORDERED: Fentanyl 100 MCG/2 ML VIAL ONE (08:55)
[2018-06-22] MEDS ORDERED: Iopamidol 370 76% 100 ML VIAL ONE (11:23)
== END 2018-06-22 13:20 | disposition home or self-care (01) ==
LOC: CCL 07:38
PROVIDERS: ATTEND Internal Medicine Cardiovascular Disease
PROC: 4A023N7 Measurement of Cardiac Sampling and Pressure, Left Heart, Percutaneous Approach (ICD-10-PCS; principal; 2018-06-22)
PROC: B2111ZZ Fluoroscopy of Multiple Coronary Arteries using Low Osmolar Contrast (ICD-10-PCS; 2018-06-22)
DX: I25.119 Atherosclerotic heart disease of native coronary artery with unspecified angina pectoris (principal); I10 Essential (primary) hypertension; E78.00 Pure hypercholesterolemia, unspecified; E78.2 Mixed hyperlipidemia; Z87.891 Personal history of nicotine dependence; Z79.02 Long term (current) use of antithrombotics/antiplatelets; Z79.82 Long term (current) use of aspirin; Z79.899 Other long term (current) drug therapy; Z95.5 Presence of coronary angioplasty implant and graft
CPT/HCPCS: 36415; 76942; 80061; 93458; C1760; C1769; J1644; J2250; J3010; Q9967

== ENCOUNTER 2018-07-18 06:48 | Outpatient (CLI) | payer MEDICARE, OTHER ==
--- NOTE | 2018-07-18 09:11 | CT ---
ABDOMEN AND PELVIS CT WITH CONTRAST: Date: 07/18/18 INDICATION: Abdominal bloating and pain. FINDINGS: Visualized lung bases are clear. No acute abnormality of the solid abdominal organs. Evidence of prio r cholecystectomy. Contrast-opacified small bowel is normal in caliber. There is normal caliber appen reese. No pericolonic inflammation. Mild colonic diverticulosis present. There are calcifications of th e uterus indicating calcified uterine fibroids. No ascites or free air. No portal vein gas. There is diffuse vascular disease. Diffuse osseous degenerative change. Noninflamed, fat-containing umbilical hernia is present. IMPRESSION: 1. There are no acute abnormalities. 2. Colonic diverticulosis. 3. Calcified uterine fibroids. POS: [facility]
[2018-07-18] MEDS ORDERED: Iopamidol 370 76% 100 ML VIAL ONE (10:32)
== END 2018-07-18 06:49 | disposition home or self-care (01) ==
LOC: BICCT 06:48
PROVIDERS: ATTEND Internal Medicine Gastroenterology
DX: R14.0 Abdominal distension (gaseous) (principal); R63.5 Abnormal weight gain; K57.30 Diverticulosis of large intestine without perforation or abscess without bleeding; D25.9 Leiomyoma of uterus, unspecified
CPT/HCPCS: 74177; 82565; Q9967

== ENCOUNTER 2018-11-02 14:25 | Outpatient (CLI) | payer MEDICARE, MEDICAID ==
--- NOTE | 2018-11-02 14:55 | ULT ---
EXAM: Bilateral lower extremity venous ultrasound HISTORY: Varicose veins COMPARISON: None TECHNIQUE: Multiplanar grayscale and color Doppler images were obtained in a bilateral lower extremit y venous ultrasound. Spectral analysis of the Doppler waveforms were performed. FINDINGS: The bilateral common femoral vein, profunda femoral veins, superficial femoral veins, and p opliteal veins are normal in appearance without visible thrombus. These vessels demonstrate normal compression, flow, and augmentation. The bilateral posterior tibial veins, profunda femoral veins and greater saphenous veins are patent w ithout evidence of DVT. IMPRESSION: No evidence of DVT.
== END 2018-11-02 14:26 | disposition home or self-care (01) ==
LOC: BICULT 14:25
PROVIDERS: ATTEND Nurse Practitioner Family
DX: M79.605 Pain in left leg (principal); M79.604 Pain in right leg; M79.89 Other specified soft tissue disorders
CPT/HCPCS: 93970

== ENCOUNTER 2023-05-30 12:38 | Outpatient (CLI) | payer OTHER, MEDICAID | END 2023-05-30 12:39 | disposition home or self-care (01) | LOC: BICCT 12:38 | PROVIDERS: ATTEND Internal Medicine Cardiovascular Disease | DX: Z12.31 Encounter for screening mammogram for malignant neoplasm of breast (principal); I10 Essential (primary) hypertension; I70.8 Atherosclerosis of other arteries; Z80.3 Family history of malignant neoplasm of breast | CPT/HCPCS: 75635; 77063; 77067; 82565 ==